=== PATIENT | male | born 1980 ===

== ENCOUNTER 2021-12-22 13:13 | Emergency (ER) | payer OTHER ==
[2021-12-22 14:03] LABS: ESTIMATED GFR 78 mL/min (>60)
[2021-12-22] MEDS ORDERED: Iopamidol 755 Mg/ML 100 ML Bottle IV ONE (15:18)
== END 2021-12-22 17:45 | disposition home or self-care (01) ==
LOC: FB.ED 13:13
DX: F41.9 Anxiety disorder, unspecified (principal); K75.9 Inflammatory liver disease, unspecified; R79.82 Elevated C-reactive protein (CRP); G89.29 Other chronic pain; R51.9 Headache, unspecified; M54.2 Cervicalgia; R53.83 Other fatigue
CPT/HCPCS: 36415; 71260; 74177; 80053; 85025; 86140; 99284; Q9967